=== PATIENT | male | born 1990 | race Caucasian/White ===

== ENCOUNTER 2017-02-19 07:15 | Emergency (ER) | payer BC ==
[2017-02-19] MEDS ORDERED: Bacitracin Oint 1 GM U/D Packet TOP ONE (07:24)
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
[2017-02-19] MEDS ORDERED: Ketorolac 60 MG/2 ML SDV IM ONE (07:39)
[2017-02-19 09:41] VITALS: BP 118/70
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
== END 2017-02-19 09:39 | disposition home or self-care (01) ==
LOC: MW.ED 07:15
DX: S01.01XA Laceration without foreign body of scalp, initial encounter (principal); S81.002A Unspecified open wound, left knee, initial encounter; S09.90XA Unspecified injury of head, initial encounter; F17.210 Nicotine dependence, cigarettes, uncomplicated; V86.59XA Driver of other special all-terrain or other off-road motor vehicle injured in nontraffic accident, initial encounter
CPT/HCPCS: 73560; 76881; 96372; 99283; J1885

== ENCOUNTER 2018-04-07 01:35 | Emergency (ER) | payer BC ==
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
[2018-04-07 02:08] VITALS: BP 146/97
== END 2018-04-07 02:04 ==
LOC: MW.ED 01:35
DX: Z02.89 Encounter for other administrative examinations (principal)
CPT/HCPCS: 99282; 99283

== ENCOUNTER 2019-03-14 17:11 | Emergency (ER) | payer BC ==
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
[2019-03-14 18:54] VITALS: BP 114/68
== END 2019-03-14 18:51 | disposition home or self-care (01) ==
LOC: MW.ED 17:11
DX: L03.115 Cellulitis of right lower limb (principal); F17.210 Nicotine dependence, cigarettes, uncomplicated
CPT/HCPCS: 73590-26-RT; 73590-RT; 99283; 99283-25

== ENCOUNTER 2020-12-06 12:10 | Emergency (ER) | payer BC ==
--- NOTE | 2020-12-06 12:41 | EDM.PDOC ---
ED HPI GENERAL MEDICAL PROBLEM - General Chief Complaint: Behavioral/Psych Stated Complaint: SUICIDAL IDEATION Time Seen by Provider: 12/06/20 12:25 - History of Present Illness INITIAL COMMENTS - FREE TEXT/NARRATIVE: 30-year-old male with a history of binge alcohol abuse presents with suicidal ideation most recently expressed a few hours ago. Patient states that he is been drinking most of the weekend he was last seen by his fiance the night before last. He drinks a few times a week mostly on the weekends. When he drinks he is unable to control. He has had significant depressive symptoms for some time. He has had on and off suicidal ideation for several months as well. This morning he had suicidal ideation with a plan to find something to hang himself with. He texted his fiance who is now accompanied him to the ER. He denies physical complaint. - Related Data Allergies Allergy/AdvReac Type Severity Reaction Status Date / Time No Known Allergies Allergy Verified 12/06/20 12:12 Home Meds: Home Meds . [No Known Home Meds] 12/06/20 [History] Past Medical History - Past Health History Medical/Surgical History: Denies Medical/Surgical History HEENT History: Reports: None Cardiovascular History: Reports: None Respiratory History: Reports: Bronchitis, Recurrent Gastrointestinal History: Reports: None Genitourinary History: Reports: None Musculoskeletal History: Reports: None Neurological History: Reports: None Psychiatric History: Reports: None Endocrine/Metabolic History: Reports: None Hematologic History: Reports: None Immunologic History: Reports: None Oncologic (Cancer) History: Reports: None Dermatologic History: Reports: None - Infectious Disease History Infectious Disease History: Reports: Other (See Below) Other Infectious Disease History: COVID - Past Surgical History Head Surgeries/Procedures: Reports: None HEENT Surgical History: Reports: None Cardiovascular Surgical History: Reports: None Respiratory Surgical History: Reports: None GI Surgical History: Reports: None Male Surgical History: Reports: None Endocrine Surgical History: Reports: None Neurological Surgical History: Reports: None Musculoskeletal Surgical History: Reports: Other (See Below) Other Musculoskeletal Surgeries/Procedures:: fx left clavicle; fx right wrist Oncologic Surgical History: Reports: None Dermatological Surgical History: Reports: None Social & Family History - Family History Family Medical History: No Pertinent Family History - Tobacco Use Tobacco Use Status *Q: Current Every Day Tobacco User Years of Tobacco use: 12 Packs/Tins Daily: 1 - Caffeine Use Caffeine Use: Reports: Energy Drinks Caffeine Use Comment: 3-4cups/day - Recreational Drug Use Recreational Drug Use: No ED ROS GENERAL - Review of Systems Review Of Systems: See Below Free Text/Narrative/Comment: General: No fever. Skin: No rash. Eyes: No vision problems. ENT: No sore throat. Neck: No neck stiffness. Respiratory: No shortness of breath. Cardiac: No chest pain. Gastrointestinal: No nausea, vomiting or abdominal pain. Urinary: No dysuria. Musculoskeletal: No myalgias/arthralgias. Neurologic: No headache. ED EXAM, GENERAL - Physical Exam Exam: See Below Free Text/Narrative:: General Appearance: No acute distress, appears comfortable Skin: No rash HEENT: Normocephalic/atraumatic, sclera anicteric, mucous membranes moist Neck: Normal range of motion Chest and Lungs: Bilateral breath sounds, clear to auscultation Cardiovascular: Regular rate and rhythm, no murmur Abdomen: Soft, non-tender Back: Normal Musculoskeletal: No edema or tenderness Neurologic: Awake, alert, no obvious deficits, moving all extremities Psychiatric: Depressed mood with appropriate affect, poor eye contact, denies active suicidal ideation but endorses SI with a plan a few hours ago, no signs of internal stimuli Course - Vital Signs Last Recorded V/S: Last Vital Signs Temp 97.5 F 12/06/20 12:13 Pulse 90 12/06/20 12:13 Resp 16 12/06/20 12:13 BP 144/97 H 12/06/20 12:13 Pulse Ox 98 12/06/20 12:13 - Orders/Labs/Meds Labs: Laboratory Tests 12/06/20 12/06/20 12/06/20 Range/Units 12:45 12:55 12:55 WBC 9.79 (4.0-11.0) K/uL RBC 5.34 (4.50-5.90) M/uL Hgb 16.9 (13.0-17.0) g/dL Hct 48.9 (38.0-50.0) % MCV 91.6 (80.0-98.0) fL MCH 31.6 (27.0-32.0) pg MCHC 34.6 (31.0-37.0) g/dL RDW Std Deviation 43.8 (28.0-62.0) fl RDW Coeff of Buster 13 (11.0-15.0) % Plt Count 254 (150-400) K/uL MPV 9.30 (7.40-12.00) fL Neut % (Auto) 64.5 (48.0-80.0) % Lymph % (Auto) 23.6 (16.0-40.0) % [place] % (Auto) 11.0 (0.0-15.0) % Eos % (Auto) 0.7 (0.0-7.0) % Baso % (Auto) 0.2 (0.0-1.5) % Neut # (Auto) 6.3 H (1.4-5.7) K/uL Lymph # (Auto) 2.3 (0.6-2.4) K/uL [place] # (Auto) 1.1 H (0.0-0.8) K/uL Eos # (Auto) 0.1 (0.0-0.7) K/uL Baso # (Auto) 0.0 (0.0-0.1) K/uL Nucleated RBC % 0.0 /100WBC Nucleated RBCs # 0 K/uL Sodium 137 (136-148) mmol/L Potassium 4.0 (3.5-5.1) mmol/L Chloride 103 (98-107) mmol/L Carbon Dioxide 25.1 (21.0-32.0) mmol/L BUN 10 (7.0-18.0) mg/dL Creatinine 1.3 (0.8-1.3) mg/dL Est Cr Clr Drug Dosing 101.08 mL/min Estimated GFR (MDRD) > 60.0 ml/min Glucose 101 (74-106) mg/dL Calcium 8.8 (8.5-10.1) mg/dL Total Bilirubin 1.6 H (0.2-1.0) mg/dL AST 19 (15-37) IU/L ALT 22 (14-63) IU/L Alkaline Phosphatase 90 (46-116) U/L Total Protein 7.8 (6.4-8.2) g/dL Albumin 4.0 (3.4-5.0) g/dL Globulin 3.8 (2.6-4.0) g/dL Albumin/Globulin Ratio 1.1 (0.9-1.6) Urine Opiates Screen (NEGATIVE) Ur Oxycodone Screen (NEGATIVE) Urine Methadone Screen (NEGATIVE) Ur Barbiturates Screen (NEGATIVE) Ur Phencyclidine Scrn (NEGATIVE) Ur Amphetamine Screen (NEGATIVE) U Methamphetamines Scrn (NEGATIVE) U Benzodiazepines Scrn (NEGATIVE) U Cocaine Metab Screen (NEGATIVE) U Marijuana (THC) Screen (NEGATIVE) Ethyl Alcohol <3 mg/dL SARS-CoV-2 RNA (CAMILO) NEGATIVE (NEGATIVE) 12/06/20 Range/Units 13:16 WBC (4.0-11.0) K/uL RBC (4.50-5.90) M/uL Hgb (13.0-17.0) g/dL Hct (38.0-50.0) % MCV (80.0-98.0) fL MCH (27.0-32.0) pg MCHC (31.0-37.0) g/dL RDW Std Deviation (28.0-62.0) fl RDW Coeff of Buster (11.0-15.0) % Plt Count (150-400) K/uL MPV (7.40-12.00) fL Neut % (Auto) (48.0-80.0) % Lymph % (Auto) (16.0-40.0) % [place] % (Auto) (0.0-15.0) % Eos % (Auto) (0.0-7.0) % Baso % (Auto) (0.0-1.5) % Neut # (Auto) (1.4-5.7) K/uL Lymph # (Auto) (0.6-2.4) K/uL [place] # (Auto) (0.0-0.8) K/uL Eos # (Auto) (0.0-0.7) K/uL Baso # (Auto) (0.0-0.1) K/uL Nucleated RBC % /100WBC Nucleated RBCs # K/uL Sodium (136-148) mmol/L Potassium (3.5-5.1) mmol/L Chloride (98-107) mmol/L Carbon Dioxide (21.0-32.0) mmol/L BUN (7.0-18.0) mg/dL Creatinine (0.8-1.3) mg/dL Est Cr Clr Drug Dosing mL/min Estimated GFR (MDRD) ml/min Glucose (74-106) mg/dL Calcium (8.5-10.1) mg/dL Total Bilirubin (0.2-1.0) mg/dL AST (15-37) IU/L ALT (14-63) IU/L Alkaline Phosphatase (46-116) U/L Total Protein (6.4-8.2) g/dL Albumin (3.4-5.0) g/dL Globulin (2.6-4.0) g/dL Albumin/Globulin Ratio (0.9-1.6) Urine Opiates Screen NEGATIVE (NEGATIVE) Ur Oxycodone Screen NEGATIVE (NEGATIVE) Urine Methadone Screen NEGATIVE (NEGATIVE) Ur Barbiturates Screen NEGATIVE (NEGATIVE) Ur Phencyclidine Scrn NEGATIVE (NEGATIVE) Ur Amphetamine Screen NEGATIVE (NEGATIVE) U Methamphetamines Scrn NEGATIVE (NEGATIVE) U Benzodiazepines Scrn NEGATIVE (NEGATIVE) U Cocaine Metab Screen POSITIVE (NEGATIVE) U Marijuana (THC) Screen NEGATIVE (NEGATIVE) Ethyl Alcohol mg/dL SARS-CoV-2 RNA (CAMILO) (NEGATIVE) Departure - Departure Time of Disposition: 15:12 Disposition: Home, Self-Care 01 Condition: Good Clinical Impression: Alcohol consumption binge drinking, Suicidal ideations - Discharge Information *PRESCRIPTION DRUG MONITORING PROGRAM REVIEWED*: Not Applicable *COPY OF PRESCRIPTION DRUG MONITORING REPORT IN PATIENT MEME: Not Applicable Instructions: Suicidal Feelings: How to Help Yourself, Alcohol Use Disorder Forms: ED Department Discharge Additional Instructions: Please follow-up with the resources provided by the [facility] crisis center. If in the future you develop thoughts of harming yourself please reach out to someone right away. Always welcome and encouraged to return to the emergency room. Please follow-up with your primary care doctor. If you do not have a primary care doctor please follow-up with one of the primary care clinics listed below. [facility] - Primary Care [address] [place] [id number] [facility] [address] [place] [address] The following information is given to patients seen in the emergency department who are being discharged to home. This information is to outline your options for follow-up care. We provide all patients seen in our emergency department with a follow-up referral. The need for follow-up, as well as the timing and circumstances, are variable depending upon the specifics of your emergency department visit. If you don't have a primary care physician on staff, we will provide you with a referral. We always advise you to contact your personal physician following an emergency department visit to inform them of the circumstance of the visit and for follow-up with them and/or the need for any referrals to a consulting specialist. The emergency department will also refer you to a specialist when appropriate. This referral assures that you have the opportunity for follow-up care with a specialist. All of these measure are taken in an effort to provide you with optimal care, which includes your follow-up. Under all circumstances we always encourage you to contact your private physician who remains a resource for coordinating your care. When calling for follow-up care, please make the office aware that this follow-up is from your recent emergency room visit. If for any reason you are refused follow-up, please contact the [facility] Emergency Department at and asked to speak to the emergency department charge nurse. Sepsis Event Note (ED) - Evaluation Sepsis Screening Result: No Definite Risk - Focused Exam Vital Signs: Vital Signs Temp Pulse Resp BP Pulse Ox 12/06/20 12:13 97.5 F 90 16 144/97 H 98 - Assessment/Plan Assessment:: 30-year-old male presents with his fiance after an episode of binge drinking with suicidal ideation that has been intermittent for some time and gradually getting worse and worse now with thoughts of hanging himself. Patient calm and cooperative but guarded with me. "I do not like spreading my business around." Expressed that think he needs psychiatric assistance. He agrees to psychiatric transfer and evaluation at this time. 1400: Pt's labs are good, COVID is negative. Pt is medically clear for psychiatric treatment at this time. Patient denies active SI or HI. Will he is calm and cooperative. Will reach out to Crisis Center. 1511: Patient has been evaluated by the intake provider for the Crisis Center. He is felt to be a good candidate for that. However, he does not agree to going there at this time. Right now the patient has no active SI no active HI his thoughts are linear future oriented and goal-directed and so I cannot detain him against as well. He agrees to let somebody know such as his fianc if suicidal thoughts return. He denies active thoughts of self-harm he feels safe going home. He agrees to try and abstain from alcohol and follow-up with the resources provided.
[2020-12-06 13:21] LABS: BLOOD UREA NITROGEN,BUN 10 mg/dL (7.0-18.0); CARBON DIOXIDE,CO2 25.1 mmol/L (21.0-32.0); CHLORIDE,CL 103 mmol/L (98-107); GLUCOSE RANDOM 101 mg/dL (74-106); SODIUM,NA 137 mmol/L (136-148)
[2020-12-06 15:26] VITALS: BP 122/81; PULSE 92
== END 2020-12-06 15:26 | disposition home or self-care (01) ==
LOC: MW.ED 12:10
DX: F32.9 Major depressive disorder, single episode, unspecified (principal); R45.851 Suicidal ideations; F10.20 Alcohol dependence, uncomplicated; Y90.0 Blood alcohol level of less than 20 mg/100 ml; Z20.822 Contact with and (suspected) exposure to COVID-19
CPT/HCPCS: 36415; 80053; 80305-QW; 80307; 85025; 99283; 99284; U0002

== ENCOUNTER 2024-10-13 19:13 | Emergency (ER) | payer SELFPAY ==
[2024-10-13] MEDS: Lidocaine 1% 5 ML VIAL INJECT STA (19:28)
[2024-10-13] MEDS: Diphtheria,Pertussis(Acell),Tetanus Vaccine 0.5 ML Syringe IM ONE (19:30)
[2024-10-13] MEDS: Cephalexin 500 MG Cap PO STA (19:52)
[2024-10-13 19:56] VITALS: BP 130/79; PULSE 72
== END 2024-10-13 19:54 | disposition home or self-care (01) ==
LOC: MW.ED 19:13
DX: S61.216A Laceration without foreign body of right little finger without damage to nail, initial encounter (principal); Z23 Encounter for immunization; Z75.8 Other problems related to medical facilities and other health care; W26.8XXA Contact with other sharp object(s), not elsewhere classified, initial encounter
CPT/HCPCS: 12001; 90471; 90715; 99282; A9270; J2003

== ENCOUNTER 2025-02-20 00:12 | Emergency (ER) | payer SELFPAY ==
[2025-02-20] MEDS ORDERED: droPERidol 2.5 MG/ML SDV IVPUSH ONE ×2 (00:20→00:22)
[2025-02-20] MEDS: droPERidol 2.5 MG/ML SDV IVPUSH ONE (00:26)
[2025-02-20 00:29] LABS: BASOPHILS ABSOLUTE AUTO 0.07 K/uL (0.00-0.20); BASOPHILS PERCENT AUTO 0.8 % (0.0-1.0); EOSINOPHILS ABSOLUTE AUTO 0.10 K/uL (0.00-0.45); EOSINOPHILS PERCENT AUTO 1.1 % (0.0-6.0); IMMATURE GRAN ABSOLUTE AUTO 0.03 K/uL (0.00-0.05); IMMATURE GRAN PERCENT AUTO 0.3 % (0.0-0.4); LYMPHOCYTES ABSOLUTE AUTO 2.67 K/uL (1.00-4.80); LYMPHOCYTES PERCENT AUTO 29.1 % (24.0-44.0); MEAN PLATELET VOLUME 8.8 fL (9.4-12.4); MONOCYTES ABSOLUTE AUTO 0.92 K/uL (0.00-0.80); MONOCYTES PERCENT AUTO 10.0 % (0.0-8.0); NEUTROPHILS ABSOLUTE AUTO 5.37 K/uL (1.80-7.70); NEUTROPHILS PERCENT AUTO 58.7 % (41.0-71.0); NRBC ABSOLUTE 0.00 K/uL (0.00-0.02); NRBC PERCENT 0.0 /100WBC (0.0-0.2); PLATELET COUNT,PLT 242 K/uL (150-400); RED BLOOD CELL COUNT 4.92 M/uL (4.52-5.90); WHITE BLOOD CELL COUNT,WBC 9.16 K/uL (3.9-11.3)
[2025-02-20] MEDS: LORazepam 2 MG/ML SDV IVPUSH ONE (00:46)
[2025-02-20] MEDS: diphenhydrAMINE 50 MG/ML SDV IVPUSH ONE (00:47)
[2025-02-20 01:05] LABS: A/G RATIO 1.3 (0.9-1.6); ALANINE AMINOTRANSFERASE,ALT 44 IU/L (14-63); ASPARTATE AMNIOTRANSFERASE,AST 37 IU/L (15-37); BILIRUBIN TOTAL 1.2 mg/dL (0.2-1.0); BLOOD UREA NITROGEN,BUN 12 mg/dL (7.0-18.0); CARBON DIOXIDE,CO2 22.8 mmol/L (21.0-32.0); CHLORIDE,CL 103 mmol/L (98-107); CREATININE 1.2 mg/dL (0.8-1.3); ETHANOL BLOOD MEDICAL <3 mg/dL; GLUCOSE RANDOM 100 mg/dL (74-106); POTASSIUM,K 4.1 mmol/L (3.5-5.1); PROTEIN TOTAL,TP 7.6 g/dL (6.4-8.2); SODIUM,NA 139 mmol/L (136-148); TSH ULTRASENSITIVE 0.47 uIU/mL (0.36-3.74)
[2025-02-20 01:16] LABS: ESTIMATED GFR 81 mL/min (>60)
[2025-02-21 18:04] VITALS: BP 110/80; PULSE 92
== END 2025-02-20 03:17 | disposition home or self-care (01) ==
LOC: MW.ED 00:12
DX: F44.5 Conversion disorder with seizures or convulsions (principal); F19.10 Other psychoactive substance abuse, uncomplicated; R45.1 Restlessness and agitation; Z87.820 Personal history of traumatic brain injury; Z62.810 Personal history of physical and sexual abuse in childhood
CPT/HCPCS: 36415; 70450; 70450-26; 80053; 80143; 80179; 80307; 82947; 83605; 83735; 84443; 85025; 93005; 93010; 96361; 96374; 96375; 99284; 99285-25; J1200; J1790; J2060; J7030